=== PATIENT | female | born 1940 | race Caucasian/White ===

== ENCOUNTER 2023-03-04 11:17 | Emergency (ER) | payer MEDICARE, OTHER ==
[2023-03-04 12:48] LABS: Hematocrit 26.1 % (34.9-44.5); Hemoglobin 8.6 g/dL (12.0-15.5); Mean Corpuscular Volume 91.3 fl (81.6-98.3); Red Blood Cell (RBC) Count 2.86 10x6/uL (3.90-5.03); White Blood Cell (WBC) Count 7.1 10x3/uL (3.5-10.5)
[2023-03-04 12:49] LABS: #Basophils 0.1 10x3/uL (0.0-0.2); #Monocytes 0.7 10x3/uL (0.0-1.1); #Neutrophils 4.7 10x3/uL (1.5-8.4); %Basophils 1.4 % (0.0-2.0); %Lymphocytes 23.3 % (18.0-47.0); %Monocytes 9.2 % (0.0-10.0); %Neutrophils 65.7 % (40.0-75.0); Mean Corpuscular Hemoglobin 30.1 pg (27.0-33.0); Platelet Count 346 10x3/uL (130-400); RBC Distribution Width 18.1 % (11.5-14.5)
[2023-03-04 13:57] LABS: Potassium 3.4 mmol/L (3.5-5.1); Sodium 141 mmol/L (136-145)
[2023-03-04 13:58] LABS: Anion Gap 18 mmol/L (10-20); BUN (Urea Nitrogen) 11 mg/dL (9.8-20.1); Bilirubin, Total 0.6 mg/dL (0.2-1.2); Calc. Creatinine Clearance 0 mL/min (70-130); Calcium 8.5 mg/dL (7.6-10.4); Carbon Dioxide 21 mmol/L (23-31); Chloride 105 mmol/L (98-107); Estimated GFR 43; Glucose 133 mg/dL (83-110)
[2023-03-04 13:59] LABS: ALT (SGPT) 19 U/L (8-55); AST (SGOT) 26 U/L (5-34); Alkaline Phosphatase 96 U/L (40-110); Globulin 2.2 g/dL (2.4-3.5); Protein, Total 5.2 g/dL (5.8-8.1)
[2023-03-04 14:02] LABS: Troponin I 0.012 ng/mL (< 0.028)
[2023-03-04] MEDS ORDERED: Aspirin 325 MG TAB ONE (15:02)
[2023-03-04] MEDS ORDERED: Vancomycin 1 GM VIAL ONE (15:03)
[2023-03-04] MEDS ORDERED: Cefepime 2 GM VIAL ONE (15:03)
[2023-03-04] MEDS ORDERED: Iopamidol 300 61% 100 ML VIAL FS ONE (15:12)
[2023-03-04 16:55] LABS: Lactic Acid 2.1 mmol/L (0.5-2.2)
== END 2023-03-04 17:30 | disposition short-term general hospital (02) ==
LOC: CSHERS 11:17
DX: I11.0 Hypertensive heart disease with heart failure (principal); I50.9 Heart failure, unspecified; E78.5 Hyperlipidemia, unspecified; Z87.891 Personal history of nicotine dependence
CPT/HCPCS: 36415; 71045; 74177; 80053; 83605; 83690; 83880; 84443; 84484; 85025; 87040; 93005; 96365; 96367; J0692; J3370; Q9967